=== PATIENT | male | born 1995 | race Caucasian/White ===

== ENCOUNTER 2018-06-12 12:50 | Emergency (ER) | payer OTHER ==
[~2018-06-12] VITALS: Ht 172.7 cm; Wt 81.6 kg
[2018-06-12] MEDS ORDERED: NKM (13:19)
--- NOTE | 2018-06-12 14:16 | Emergency Room Report ---
History of Present Illness General Chief Complaint: Back Pain-No Injury Source: Patient Present Illness HPI 23-year-old male presents to the emergency department complaining of localized 8 out of 10 in severity mid back pain that exacerbates upon certain movements such as bending forward or sitting for too long. Patient denies appreciable trauma or fall he reports being an accident many years ago. Patient denies strenuous activities or heavy lifting. Patient denies numbness or tingling in the lower extremities denies incontinence or saddle anesthesia. Denies recent spinal procedures, fevers, chills or history of cancer. Denies numbness tingling or loss of sensation or gross motor movements of the extremities, incontinence of bowel or bladder. Denies CP, Palpitations, LOC, AMS, dizziness, Changes in Vision, weakness or a sudden severe headache. Allergies: Coded Allergies: No Known Allergies (Unverified , 06/12/18) Patient History Past Medical History: see triage record Past Surgical History: none Pertinent Family History: none Reviewed Nursing Documentation: PMH: Agreed; PSxH: Agreed Nursing Documentation-PMH Past Medical History: No Stated History Review of Systems All Other Systems: negative except mentioned in HPI Physical Exam Vital Signs Date Time Temp Pulse Resp B/P (MAP) Pulse Ox O2 Delivery O2 Flow Rate FiO2 06/12/18 13:16 98.2 77 14 110/72 99 Room Air 98.2 Sp02 EP Interpretation: reviewed, normal General Appearance: no apparent distress, alert, GCS 15, non-toxic Head: normocephalic, atraumatic Eyes: bilateral eye normal inspection, bilateral eye PERRL ENT: hearing grossly normal, normal voice Neck: full range of motion Respiratory: chest non-tender, lungs clear, normal breath sounds, no respiratory distress, no accessory muscle use, no wheezing, speaking full sentences Cardiovascular #1: regular rate, rhythm Gastrointestinal: non tender, soft Genitourinary: normal inspection, no CVA tenderness Musculoskeletal: back normal, gait/station normal, normal range of motion, tender - TTP primarily right paraspinal throacis musculature, no localized midline ttp, step-off or deformity. pt. has FROM, no erythema , rashes or bruises. Neurologic: alert, oriented x3, responsive, motor strength/tone normal, sensory intact, normal gait, speech normal, grossly normal Psychiatric: judgement/insight normal Skin: normal color, no rash, warm/dry, well hydrated Medical Decision Making PA Attestation Dr. Koch is my supervising Physician whom patient management has been discussed with. Diagnostic Impression: Primary Impression: Back pain Qualified Codes: M54.6 - Pain in thoracic spine ER Course 23-year-old male presents to the emergency department complaining of localized 8 out of 10 in severity mid back pain that exacerbates upon certain movements such as bending forward or sitting for too long. Patient denies appreciable trauma or fall he reports being an accident many years ago. Patient denies strenuous activities or heavy lifting. Patient denies numbness or tingling in the lower extremities denies incontinence or saddle anesthesia. Denies recent spinal procedures, fevers, chills or history of cancer. Denies numbness tingling or loss of sensation or gross motor movements of the extremities, incontinence of bowel or bladder. Denies CP, Palpitations, LOC, AMS, dizziness, Changes in Vision, weakness or a sudden severe headache. Ddx considered but are not limited to Fracture, dislocation, contusion, epidural abscess, Sprain/Strain/Spasm Vital signs: are WNL, pt. is afebrile H&PE are most consistent with back pain most likely nerve impingement/ muscle spasm, no emergent symptoms to warrant ED work up. ORDERS: none required at this time. ED INTERVENTIONS: none required at this time. --I do not identify an emergent condition at this time. With current presentation, pt. is stable for close outpatient follow up and conservative treatment. D/w pt. to return promptly to ED with worsening or new symptoms.- Pt. verbalizes' understanding and agreement with proposed treatment plan.proposed treatment plan. DISCHARGE: At this time pt. is stable for d/c to home. Will provide printed patient care instructions, and any necessary prescriptions. Care plan and follow up instructions have been discussed with the patient prior to discharge. Last Vital Signs Date Time Temp Pulse Resp B/P (MAP) Pulse Ox O2 Delivery O2 Flow Rate FiO2 06/12/18 13:16 98.2 77 14 110/72 99 Room Air 98.2 Disposition: HOME, SELF-CARE Condition: Stable Scripts Ibuprofen* (MOTRIN*) 600 Mg Tablet 600 MG ORAL THREE TIMES A DAY, #30 TAB 0 Refills Prov: Allyson Carcamo 06/12/18 Carisoprodol* (SOMA*) 350 Mg Tablet 350 MG PO QHS, #1 TAB Take 1 "Soma/carisoprodol" tonight at bedtime. Then start taking "Robaxin/methocarbamol" for maintenance starting tomorrow, do not take both medications at the same time. Prov: Allyson Carcamo 06/12/18 Lidocaine (Lidoderm) 1 Each Adh..patch 1 PATCH TOPIC DAILY for pain, #30 PATCH 0 Refills Patch(es) may remain in place for up to 12 hours in any 24-hour period. Prov: Allyson Carcamo 06/12/18 Methocarbamol* (ROBAXIN*) 500 Mg Tablet 1000 MG PO TID, #42 TAB 0 Refills Prov: Allyson Carcamo 06/12/18 Referrals: [facility],REFERRING (PCP) Patient Instructions: Back Pain, Adult Additional Instructions: Take medications as directed. Follow up with a Primary Care Provider in 3-5 days, even if your symptoms have resolved. --Please review list of primary care clinics, if you do not already have a primary care provider Return sooner to ED if new symptoms occur, or current symptoms become worse. Do not drink alcohol, drive, or operate heavy machinery while taking Muscle Relaxers as this may cause drowsiness. - Please note that this Emergency Department Report was dictated using [employer] technology software, occasionally this can lead to erroneous entry secondary to interpretation by the dictation equipment. Allyson Carcamo Jun 12, 2018 14:15
[2018-06-12] MEDS ORDERED: ROBAXIN500 MG PO (14:17)
[2018-06-12] MEDS ORDERED: SOMA350 MG PO (14:17)
[2018-06-12] MEDS ORDERED: LIDODERM700 M1 TOPIC (14:17)
[2018-06-12] MEDS ORDERED: IBUPROFEN600 MG ORAL (14:17)
[2018-06-12 14:38] VITALS: BP 108/70
== END 2018-06-12 14:38 | disposition home or self-care (01) ==
LOC: EMR 13:56
DX: M54.9 Dorsalgia, unspecified (principal); M54.6 Pain in thoracic spine
CPT/HCPCS: 99282

== ENCOUNTER 2018-11-22 01:42 | Emergency (ER) | payer OTHER ==
[~2018-11-22] VITALS: Ht 172.7 cm; Wt 70.3 kg
[~2018-11-22 01:42] MED LIST: IBUPROFEN600 MG ORAL; LIDODERM700 M1 TOPIC; NKM; ROBAXIN500 MG PO; SOMA350 MG PO
[2018-11-22 02:01] VITALS: BP 128/88
--- NOTE | 2018-11-22 02:08 | Emergency Room Report ---
History of Present Illness General Chief Complaint: Laceration Source: Patient Present Illness HPI This is a 23-year-old male who is right-hand dominant. He presents with chief when a laceration to the thumb. Onset about 3 hours ago. He was cleaning a glass pipe and it broke. He sustained a laceration to his right thumb. No other injury. No pain. Bleeding stopped initially but then came back again. No nausea no vomiting. No fever chills. Denies any other complaint. No foreign body. Allergies: Coded Allergies: No Known Allergies (Unverified , 06/12/18) Patient History Past Medical History: none, see triage record, old chart reviewed Past Surgical History: none Pertinent Family History: none Social History: Denies: smoking Immunizations: other Reviewed Nursing Documentation: PMH: Agreed; PSxH: Agreed Nursing Documentation-PMH Hx Hypertension: Yes Review of Systems Eye: Denies: eye pain, blurred vision ENT: Denies: ear pain, nose congestion, throat swelling Respiratory: Denies: cough, shortness of breath Cardiovascular: Denies: chest pain, palpitations Gastrointestinal: Denies: abdominal pain, diarrhea, nausea, vomiting Musculoskeletal: Denies: back pain, joint pain Skin: Denies: rash Neurological: Denies: headache, numbness Endocrine: Denies: increased thirst, increased urine Hematologic/Lymphatic: Denies: easy bruising All Other Systems: negative except mentioned in HPI Physical Exam Vital Signs Date Time Temp Pulse Resp B/P (MAP) Pulse Ox O2 Delivery O2 Flow Rate FiO2 11/22/18 01:46 98.2 116 20 164/89 98 Room Air vitals unremarkable Sp02 EP Interpretation: reviewed, normal General Appearance: well appearing, no apparent distress, alert Head: normocephalic, atraumatic Eyes: bilateral eye PERRL, bilateral eye EOMI ENT: hearing grossly normal, normal pharynx Neck: full range of motion, supple, no meningismus Respiratory: chest non-tender, lungs clear, normal breath sounds Cardiovascular #1: regular rate, rhythm, no murmur Gastrointestinal: normal bowel sounds, non tender, no mass, no organomegaly, no bruit, non-distended Musculoskeletal: back normal, gait/station normal, normal range of motion, other - Right thumb: There is a 1 cm laceration to the proximal phalanx on the volar aspect. No foreign body. Full range of motion of MCP and DIP joint. Sensation normal. Neurologic: alert, oriented x3 Psychiatric: mood/affect normal Skin: warm/dry Procedures Laceration/Wound Repair Laceration/Wound Repair : Consent: Verbal Wound Location: upper extremity Wound's Depth, Shape: linear Wound Length (cm): 1 Wound Explored: clean Irrigated w/ Saline (ccs): 500 Betadine Prep?: Yes Anesthesia: 1% Lidocaine Volume Anesthetic (ccs): 1 Wound Repaired With: sutures Suture Size/Type: 6:0, proline Number of Sutures: 2 Patient Tolerated: Well Complications: None Medical Decision Making Diagnostic Impression: Primary Impression: Laceration ER Course Patient with laceration. No foreign body or tendon involvement. We'll discharge home. Last Vital Signs Date Time Temp Pulse Resp B/P (MAP) Pulse Ox O2 Delivery O2 Flow Rate FiO2 11/22/18 02:01 98.2 68 16 128/88 98 Room Air Status: improved Disposition: HOME, SELF-CARE Condition: Stable Patient Instructions: Laceration Care, Adult Additional Instructions: Keep wound clean. Apply in the right ointment. Follow-up with your doctor in 7 days for suture removal. Return if worse. Go to rehabilitation for drug addiction. Eric Vences MD Nov 22, 2018 02:08
[2018-11-22] MEDS ORDERED: Tetanus/Diptheria/Pertussis IM ONE (02:15)
[2018-11-22 02:23] VITALS: BP 128/88
--- NOTE | 2018-11-22 02:23 | NUR ---
ED Nurse Note: PT discharge instruction provided, pt advised to follow up with pcp in 7days for suture removal, pt education done via discussion and hand out, wristband removed, pt verbalized understanding and agrees with plan, vss, ambulatory, stitches intact, dressing intact, all belongings left w/ pt.
== END 2018-11-22 02:25 | disposition home or self-care (01) ==
LOC: EMR 02:08
DX: S61.011A Laceration without foreign body of right thumb without damage to nail, initial encounter (principal); W25.XXXA Contact with sharp glass, initial encounter; Y92.9 Unspecified place or not applicable; Z23 Encounter for immunization; I10 Essential (primary) hypertension
CPT/HCPCS: 12001; 90471; 90715; 99283; Z7502